=== PATIENT | male | born 1970 | race Caucasian/White ===

== ENCOUNTER 2018-09-12 16:34 | Inpatient (IN) | payer OTHER ==
[~2018-09-12] VITALS: Ht 167.6 cm; Wt 67.0 kg
[2018-09-12] MEDS ORDERED: ACTIVATED CHARCOAL 50 GM/240 ML SUSPENSION PO ONE (17:15)
[2018-09-12 18:13] LABS: AMPHET/METH SCREEN,URINE POSITIVE (NEGATIVE); BARBITURATE SCREEN, URINE NEGATIVE (NEGATIVE); BENZODIAZEPINES SCREEN,URINE NEGATIVE (NEGATIVE); CANNABINOID SCREEN,URINE NEGATIVE (NEGATIVE); COCAINE SCREEN,URINE NEGATIVE (NEGATIVE); METHADONE SCREEN, URINE NEGATIVE (NEGATIVE); OPIATE SCREEN,URINE POSITIVE (NEGATIVE)
[2018-09-12 18:15] LABS: PHENCYCLIDINE SCREEN,URINE NEGATIVE (NEGATIVE)
[2018-09-12] MEDS: PEG 3350/NA SULF,BICARB,CL/KCL 4000 ML SOLUTION PO ONE (19:50)
[2018-09-12] MEDS ORDERED: NALOXONE HCL 1 MG/ML 2 ML SYG ONE (21:38)
[2018-09-12] MEDS ORDERED: NALOXONE HCL 1 MG/ML 2 ML SYG IM ONE (21:45)
[2018-09-12] MEDS ORDERED: ONDANSETRON HCL 4 MG/2 ML VIAL IVP PRN ×2 (22:15→22:45)
[2018-09-12] MEDS ORDERED: ACETAMINOPHEN 325 MG TABLET PO PRN ×2 (22:15→22:45)
[2018-09-12] MEDS ORDERED: 0.9% SODIUM CHLORIDE 10 ML SYRINGE IVP PRN (22:15)
[2018-09-12] MEDS ORDERED: BISACODYL 10 MG RECTAL RECTAL SUPPOSITORY PR PRN (22:45)
[2018-09-12] MEDS ORDERED: ZOLPIDEM TARTRATE 5 MG TABLET PO PRN (22:45)
[2018-09-12] MEDS ORDERED: MAGNESIUM HYDROXIDE SUSPENSION 30 ML UDCUP PO PRN (22:45)
[2018-09-12] MEDS ORDERED: MORPHINE SULFATE 2 MG/ML SYRINGE IVP PRN (22:45)
[2018-09-12] MEDS ORDERED: HYDROCODONE/ACETAMINOPHEN 5-325 MG TABLET PO PRN (22:45)
[2018-09-12] MEDS ORDERED: MAGNESIUM SULFATE 2 GM, MVI, ADULT NO.1 WITH VIT K 10 ML, THIAMINE HCL 100 MG, FOLIC AC... IV ONE ×5 (22:45)
[2018-09-13] VITALS (31 sets, daily range): BP systolic 105–143; BP diastolic 51–102
[2018-09-13] MEDS: PEG 3350/NA SULF,BICARB,CL/KCL 4000 ML SOLUTION PO ONE (00:05)
[2018-09-13] MEDS ORDERED: LIDOCAINE 1% 10 ML VIAL ONE (02:38)
[2018-09-13] MEDS ORDERED: SODIUM CHLORIDE 0.9% 250 ML IRRIG SOLUTION BOTTLE IRRIG ONE (06:00)
[2018-09-13] MEDS ORDERED: PERTUSS(ACELL),DIPH,TET VAC/PF 0.5 ML VIAL IM ONE (06:00)
[2018-09-13] MEDS ORDERED: LIDOCAINE 1% 10 ML VIAL INJ ONE (06:00)
[2018-09-13 06:15] LABS: BASOPHILS % (AUTO) 0.7 % (0.0-2.0); EOSINOPHILS % (AUTO) 3.9 % (1.0-6.0); HEMATOCRIT 38.5 % (41-53); LYMPHOCYTES # (AUTO) 1.4 K/uL (1.0-4.8); LYMPHOCYTES % (AUTO) 26.8 % (22.0-44.0); MEAN CORPUSCULAR HEMOGLOBIN 28.9 pg (26.0-34.0); MEAN CORPUSCULAR HGB CONC 33.7 G/dL (31.0-37.0); MEAN CORPUSCULAR VOLUME 86 fL (80-100); MONOCYTES # (AUTO) 0.7 K/uL (0.1-1.0); MONOCYTES % (AUTO) 12.5 % (2.0-9.0); NEUTROPHILS # (AUTO) 2.9 K/uL (1.8-7.7); NEUTROPHILS % (AUTO) 56.1 % (40.0-70.0); PLATELET COUNT (AUTO) 201 K/uL (150-450); RED BLOOD CELL COUNT(AUTO) 4.49 MIL/uL (4.50-5.90); RED CELL DISTRIBUTION WIDTH 15.1 % (11.5-14.5)
[2018-09-13 06:48] LABS: ALANINE AMINOTRANSFERASE 63 U/L (12-78); ALKALINE PHOSPHATASE 111 U/L (46-116); ANION GAP 5 mmol/L (8-16); ASPARTATE AMINOTRANSFERASE 54 U/L (15-37); BILIRUBIN,TOTAL 0.5 mg/dL (0.1-1.0); CALCIUM, TOTAL 8.7 mg/dL (8.8-10.5); CARBON DIOXIDE 27 mmol/L (22-29); CHLORIDE 107 mmol/L (98-107); CREATININE 0.72 mg/dL (0.60-1.30); GLOMERULAR FILTR. RATE CALC > 60 mL/min (>60); GLUCOSE,RANDOM 88 mg/dL (70-110); POTASSIUM 3.7 mmol/L (3.5-5.1); SODIUM SERUM 139 mmol/L (136-145); TOTAL PROTEIN, SERUM 7.4 g/dL (6.4-8.2); UREA NITROGEN, BLOOD 12 mg/dL (7-18)
[2018-09-13] MEDS: HEPARIN SODIUM,PORCINE 5,000 UNITS/ML VIAL SQ SCH ×2 (08:29)
[2018-09-13] MEDS ORDERED: PANTOPRAZOLE SODIUM 40 MG DR TABLET PO SCH (09:00)
[2018-09-13] MEDS ORDERED: DOCUSATE SODIUM 100 MG CAPSULE PO SCH (09:00)
[2018-09-13] MEDS ORDERED: LORazepam 2 MG/ML VIAL IVP ONE (11:45)
[2018-09-13 19:40] LABS: GLUCOMETER DEV NAME(LOC) 5N.1; GLUCOSE,POINT OF CARE 129 MG/DL (70-110)
== END 2018-09-13 14:33 | disposition left against medical advice (07) | DRG 816 ==
LOC: EMS 16:40 → 5S 22:16
PROVIDERS: ADMIT Internal Medicine; ATTEND Internal Medicine
DX: T40.1X1A Poisoning by heroin, accidental (unintentional), initial encounter (principal); G92 Toxic encephalopathy; Z53.21 Procedure and treatment not carried out due to patient leaving prior to being seen by health care provider; F19.10 Other psychoactive substance abuse, uncomplicated; Y92.89 Other specified places as the place of occurrence of the external cause
CPT/HCPCS: 12013; 70450; 72125; 74176; 90715; 93005; G0378; J1644; J2310; J3411; J3475; J3490; J7030

== ENCOUNTER 2018-11-10 01:01 | Emergency (ER) | payer OTHER ==
[~2018-11-10] VITALS: Ht 165.1 cm; Wt 72.7 kg
[2018-11-10] MEDS ORDERED: SULFAMETHOX/TRIMETH DS 800-160 MG/TABLET PO ONE (02:45)
[2018-11-10] MEDS ORDERED: LIDOCAINE 1% 10 ML VIAL INJ ONE (02:45)
[2018-11-10] MEDS ORDERED: CEPHALEXIN MONOHYDRATE 500 MG CAPSULE PO ONE (02:45)
[2018-11-10] MEDS ORDERED: POVIDONE-IODINE 10% 120 ML SOLUTION TP ONE (02:45)
[2018-11-10 02:57] VITALS: BP 147/101
== END 2018-11-10 03:31 | disposition home or self-care (01) ==
LOC: EMS 01:01
DX: L02.512 Cutaneous abscess of left hand (principal); F19.10 Other psychoactive substance abuse, uncomplicated; F14.90 Cocaine use, unspecified, uncomplicated
CPT/HCPCS: 99284; J3490